=== PATIENT | female | born 1990 | race Caucasian/White ===

== ENCOUNTER 2017-01-12 12:46 | Emergency (ER) | payer BC ==
--- NOTE | ~2017-01-12 | ER ---
PATIENT'S NAME: [facility] AGE: 26 Y [address] ROOM: [place] [address] LOCATION: [facility] ADMIT DATE: 01/12/2017 ER/Outpatient Report DISCHARGE DATE: 01/12/2017 FAMILY PHYSICIAN: Carloz Shi MD ATTENDING PHYSICIAN: Isaac Silveira Time of Patient's Arrival: 1246 hours. Time of Patient's Evaluation: 1255 hours. CHIEF COMPLAINT: Chest discomfort. HISTORY OF PRESENT ILLNESS: A 26-year-old female who presents to the ER. She states she has had chest pain for approximately a day and half. She states she has had 2-day history of some heart palpitations and felt like her heart has been racing. She states she does have a history of anxiety and depression. She states she is dealing with a lot of stress with her and they have been fighting a lot lately. She states that usually when she is having anxiety, she will have a fast heart rate. She did take her home medications which did improve her anxiety symptoms, but she states that she is having some chest wall pain. The patient denies any recent illness. No fever or chills. No other problems at this time. ALLERGIES: PLEASE SEE MEDICATION LIST IN NURSE'S NOTES. MEDICATIONS: Please see medication list in nurse's notes. PAST MEDICAL HISTORY: Anxiety, depression, tachycardia, and restless legs syndrome. PAST SURGERIES: Gastric bypass, cholecystectomy, , tubal ligation, tonsillectomy, and endometrial ablation. SOCIAL HISTORY: Drinks alcohol 1 time a month. Denies any smoking use. REVIEW OF SYSTEMS: A 10-point review of systems was completed and was negative with the exception of those discussed in the HPI. PHYSICAL EXAMINATION: PATIENT'S NAME: [facility] AGE: 26 Y [address] ROOM: [place] [address] LOCATION: [facility] ADMIT DATE: 01/12/2017 ER/Outpatient Report DISCHARGE DATE: 01/12/2017 FAMILY PHYSICIAN: Carloz Shi MD ATTENDING PHYSICIAN: Isaac Silveira VITAL SIGNS: Weight 71 kg taken, blood pressure is 147/71, pulse 115, respirations 16, temperature 97.8 degrees tympanically, and saturations 96% on room air. Irving Coma Score is 15. GENERAL: Alert, anxious-appearing, 26-year-old, in no acute distress. HEENT: Head: Normocephalic. Eyes: Pupils are equal and reactive to light. Does display moist mucous membranes. LUNGS: Clear to auscultation bilaterally. No wheeze or crackles. Normal respiratory effort. HEART: Tachycardic. Normal rhythm. No lifts, thrills, or murmurs. ABDOMEN: Soft, it is nontender. She has good bowel sounds throughout. No masses are palpated. EXTREMITIES: No clubbing, cyanosis, or edema. Has full range of motion of all limbs. MUSCULOSKELETAL: She does have tenderness with palpation over the right side of her chest wall. This is the reproducible pain that she is having. LABORATORY DATA: CBC: White count is 4.7, hemoglobin was 13.0, platelets 153, and ANC is 2.9. INR is 0.93. CMS: Potassium 3.3, BUN 11, creatinine 0.7, and estimated GFR is greater than 60. Magnesium is 2.1. CPK is 75, CK-MB is 0.6, troponin I is less than 0.040. HCG is less than 1.0. D-dimer was negative at 0.19. EKG shows some sinus tachycardia. Chest x-ray was negative for any infiltrate. IMPRESSION: 1. Chest wall pain. 2. Anxiety. 3. Increased stress level. ASSESSMENT AND PLAN: The patient refused aspirin. We did monitor her here for quite some time. I did discuss the patient's care with Dr. Silveira. We will dismiss the patient to home. She needs to apply warm compresses for comfort. She may take Tylenol as needed every 4-6 hours. Continue to monitor her symptoms. Continue her home medications, and follow up with primary care physician if she is not improved. The patient understands and agrees with care. RADHA BEYER PA-C FOR MD MYKEL ADAN/mercedes /[id number] d: 01/12/17 2248 t: 01/16/17617, OUTPATIENT REPORT
[2017-01-12 13:19] LABS: BASOPHIL % 0.4 %; EOSINOPHIL # 0.1 K/uL (0.0-0.5); EOSINOPHIL % 1.5 %; HEMATOCRIT 38.6 % (33.0-46.0); IMMATURE GRANULOCYTE % 0.2 %; LYMPHOCYTE # 1.2 K/uL (0.8-4.0); LYMPHOCYTE % 24.5 %; MCH 29.5 pg (27.0-34.0); MCHC 33.7 gm/dL (32.0-36.5); MCV 87.7 fl (83.0-98.0); MONOCYTE # 0.6 K/uL (0.0-1.0); MONOCYTE % 12.2 %; NEUTROPHIL # (ANC) 2.9 K/uL (1.8-7.8); NEUTROPHIL % 61.2 %; NRBC % 0 /100WBC (0-0.00); PLATELET COUNT 153 K/uL (150-450); RDW-CV 13.4 % (11.9-14.6); WBC 4.7 K/uL (4.0-11.0)
[2017-01-12 13:28] LABS: INR - (THERAPEUTIC) 0.93 (0.92-1.07); PROTIME 9.8 SECONDS (9.8-11.4); PTT 28 SECONDS (25-32)
[2017-01-12 13:38] LABS: ALBUMIN 3.9 gm/dL (3.5-5.0); ALK PHOS 117 IU/L (33-138); ALT 39 IU/L (12-78); ANION GAP 11.3 (10.0-19.0); AST 54 IU/L (10-40); BLOOD UREA NITROGEN 11 mg/dL (6-24); CALCIUM 8.4 mg/dL (8.5-10.5); CHLORIDE 107 mMol/L (96-110); CO2 24 mMol/L (22-32); CPK 75 IU/L (21-215); CREATININE 0.7 mg/dL (0.5-1.1); ESTIMATED GFR (MDRD EQUATION) > 60; MAGNESIUM 2.1 mg/dL (1.8-2.6); POTASSIUM 3.3 mMol/L (3.7-5.1); SODIUM 139 mMol/L (135-145); TOTAL PROTEIN 7.2 g/dL (6.0-8.4)
[2017-01-12 13:40] LABS: TOTAL BILIRUBIN 0.4 mg/dL (0.0-1.5)
== END 2017-01-12 14:21 | disposition disaster alternative care site (69) ==
LOC: GMED 12:46
PROVIDERS: Physician Assistant Medical
DX: R07.89 Other chest pain (principal); F41.1 Generalized anxiety disorder; F43.0 Acute stress reaction; Z79.899 Other long term (current) drug therapy